=== PATIENT | female | born 1950 | race Caucasian/White ===

== ENCOUNTER → 2016-10-24 | Outpatient (CLI) | payer OTHER | LOC: FIMAGING 10:04 | PROVIDERS: ATTEND Family Medicine | DX: Z12.31 Encounter for screening mammogram for malignant neoplasm of breast (principal); Z13.820 Encounter for screening for osteoporosis; M81.0 Age-related osteoporosis without current pathological fracture; Z78.0 Asymptomatic menopausal state | CPT/HCPCS: G0202 ==

== ENCOUNTER → 2018-11-19 | Outpatient (CLI) | payer OTHER | LOC: FIMAGING 08:41 | PROVIDERS: ATTEND Family Medicine | DX: Z12.31 Encounter for screening mammogram for malignant neoplasm of breast (principal) ==